=== PATIENT | male | born 1975 | race Two or more races ===

== ENCOUNTER 2016-08-18 04:09 | Emergency (ER) | payer MEDICARE, MEDICAID ==
[~2016-08-18] VITALS: Ht 170.2 cm; Wt 155.6 kg
[2016-08-18 04:19] VITALS: BP 103/50
[2016-08-18] MEDS ORDERED: KETOROLAC TROMETH 60MG/2ML VIAL IM ONE (04:45)
== END 2016-08-18 05:27 | disposition home or self-care (01) ==
LOC: EDBD 04:09 → ER 04:13
DX: M10.9 Gout, unspecified (principal); N39.0 Urinary tract infection, site not specified; E66.01 Morbid (severe) obesity due to excess calories; Z68.43 Body mass index [BMI] 50.0-59.9, adult; E11.9 Type 2 diabetes mellitus without complications
CPT/HCPCS: 29505; 82962; 96372; 99283; J1885

== ENCOUNTER 2016-11-13 10:12 | Observation (INO) | payer MEDICARE, MEDICAID ==
[~2016-11-13] VITALS: Ht 170.2 cm; Wt 155.6 kg
[2016-11-13 11:03] LABS: Basophils # (auto) 0.1 uL; Basophils % (auto) 0.6 % (0.0-2.0); CONDITION Y; Eosinophils # (auto) 0.1 uL; Eosinophils % (auto) 0.7 % (0.0-7.0); Hematocrit 48.6 % (41.0-53.0); Hemoglobin 16.2 g/dL (13.5-17.5); Lymphocytes # (auto) 2.3 uL; Lymphocytes % (auto) 21.6 % (10.0-50.0); Mean Corpuscular Hgb Conc. 33.3 g/dL (32.0-36.0); Mean Corpuscular Volume 87.2 fL (80.0-100.0); Mean Platelet Volume 10.3 fL (7.4-10.4); Monocytes # (auto) 0.7 uL; Monocytes % (auto) 6.5 % (0.0-12.0); Neutrophils # (auto) 7.5 uL; Neutrophils % (auto) 70.6 % (37.0-80.0); Platelet Count (auto) 185 10^3/uL (140-450); Red Cell Distribution Width 14.6 % (11.6-16.0); White Blood Cell 10.6 10^3/uL (4.4-10.8)
[2016-11-13 11:17] LABS: Urine RBC None Seen /hpf (0 - 3)
[2016-11-13 11:19] LABS: Albumin 3.4 g/dL (3.4-5.0); Alkaline Phosphatase 135 U/L (45-117); Anion Gap 8 (5-15); Aspartate Aminotransferase 5 U/L (15-37); Bilirubin, Total 0.4 mg/dL (0.2-1.0); Blood Urea Nitrogen 17 mg/dL (7-18); Calcium 8.8 mg/dL (8.5-10.1); Carbon Dioxide 27 mmol/L (21-32); Chloride 104 mmol/L (98-107); GFR African American 92 mL/min; GFR Non-African American 76 mL/min; Glucose 170 mg/dL (74-106); Magnesium 2.5 mg/dL (1.6-2.6); Potassium 3.8 mmol/L (3.5-5.1); Sodium 139 mmol/L (136-145); Total Protein 7.6 g/dL (6.4-8.2)
[2016-11-13 11:31] LABS: Urine Bilirubin Negative (Negative); Urine Blood Negative /uL (Negative); Urine Color Yellow (Yellow); Urine Glucose Normal (Normal); Urine Ketone Negative (Negative); Urine Nitrite Negative (Negative); Urine Squamous Epithelial Cell FEW /hpf (<5); Urine Urobilinogen Normal (Negative)
[2016-11-13] MEDS ORDERED: ASPirin 81 mg TAB PO ONE (13:00)
[2016-11-13 13:21] LABS: INR 0.98 (0.9-1.15); Partial Thromboplastin Time 28.8 sec (22.64-33.71); Prothrombin Time 10.7 sec (9.37-12.3)
[2016-11-13 14:17] LABS: B-Type Natriuretic Peptide 2.27 pg/mL (0-100)
[2016-11-13 14:36] VITALS: BP 125/80
== END 2016-11-13 16:02 | disposition left against medical advice (07) | DRG 313 ==
LOC: ER 10:12 → OVERFLOW 12:50 → ER 16:02
PROVIDERS: ADMIT Family Medicine; ATTEND Family Medicine
DX: R07.89 Other chest pain (principal); E66.01 Morbid (severe) obesity due to excess calories; I10 Essential (primary) hypertension; E11.9 Type 2 diabetes mellitus without complications; F41.9 Anxiety disorder, unspecified; M10.9 Gout, unspecified; Z83.3 Family history of diabetes mellitus; Z82.49 Family history of ischemic heart disease and other diseases of the circulatory system
CPT/HCPCS: 36415; 71020; 80053; 81001; 83735; 83880; 84443; 84484; 85025; 85379; 85610; 85730; 93005; 99285; G0378; J7030